=== PATIENT | male | born 2000 | race Two or more races ===

== ENCOUNTER 2024-09-12 08:33 | Emergency (ER) | payer OTHER, SELFPAY ==
[2024-09-12 08:43] VITALS: BP 132/87; PULSE 69; RESP 16; TEMP 36.7; O2SAT 98
[2024-09-12 08:44] VITALS: BMI 23.7
--- NOTE | 2024-09-12 08:45 | XR_ITS ---
Examination: Fingers, right hand third digit 3 views Technique: AP, oblique, lateral views right hand third digit 3 views. Exam date and time: September 12, 2024 0858 hours INDICATIONS: Laceration and injury to the third digit today, pain FINDINGS: Comminuted fractures ungual tuft tip distal phalanx third digit with displacement of the 2 mm bone fragment on the lateral view dorsally No opaque foreign body IMPRESSION: Severely comminuted fractures distal phalanx third digit
[2024-09-12] MEDS: IBUPROFEN TAB 400 MG TABLET 800 MG PO (08:49)
[2024-09-12] MEDS: DIPHTH,PERTUSS(ACELL),TET VAC 0.5 ML VIAL IMi (08:51)
[2024-09-12] MEDS: LIDOCAINE HCL 1% 20 ML VIAL INFL (08:56)
--- NOTE | 2024-09-12 09:18 | PD.EDWOUND ---
ED Wound/Laceration-RME/HPI General Chief Complaint: Wound/Laceration Stated Complaint: CUT RIGHT MIDDLE FINGER WITH WIRE Time Seen by Provider: 09/12/24 08:41 Arrival date/time: 09/12/24 08:33 24-year-old male presents emergency department complaint of laceration to right middle finger patient ports he accidentally cut himself with a wire while at work today Limitations: no limitations Related Data Previous Rx's ?Medication ?Instructions ?Recorded cephalexin 500 mg tablet 500 mg PO QID 7 days #28 tabs 09/12/24 hydrocodone 5 mg-acetaminophen 325 1 tab PO BID PRN pain #10 tabs 09/12/24 mg tablet ibuprofen 600 mg tablet 600 mg PO Q6H #30 tabs 09/12/24 Allergies Allergy/AdvReac Type Severity Reaction Status Date / Time No Known Allergies Allergy Verified 09/12/24 08:35 Review of Systems Review of Systems Systems Reviewed: All systems reviewed, normal except as documented Constitutional Constitutional: Reports system reviewed and no additional complaints, except as documented, Denies fever(s) and Denies headache(s) Eyes Eyes: Reports system reviewed and no additional complaints, except as documented and Denies blurry vision ENT Ears, Nose, Mouth, and Throat: Reports system reviewed and no additional complaints, except as documented, Denies headache(s), Denies nasal congestion and Denies nasal discharge Cardiovascular Cardiovascular: Reports system reviewed and no additional complaints, except as documented, Denies chest pain and Denies dyspnea Respiratory Respiratory: Reports system reviewed and no additional complaints, except as documented, Denies chest congestion, Denies cough and Denies dyspnea Gastrointestinal Gastrointestinal: Reports system reviewed and no additional complaints, except as documented and Denies abdominal pain Integumentary/Breasts Skin/Breast: Reports system reviewed and no additional complaints, except as documented, Denies rash and Reports wounds (Laceration right middle finger) Neurologic Neurologic: Reports system reviewed and no additional complaints, except as documented, Reports as per HPI and Denies headache(s) Past Medical History Past Medical History NEUROLOGIC: Negative Neurological Disorders CARDIAC: Negative Cardiac Disorders ED Exam General Limitations: Present no limitations General appearance: Present alert and in no apparent distress Head Head exam: Present atraumatic Eye Eye exam: Present normal appearance, PERRL and EOMI ENT ENT exam: Present normal exam, normal oropharynx and mucous membranes moist Neck Neck exam: Present normal inspection, full ROM and trachea midline Chest Chest inspection: Present normal inspection and symmetric chest wall rise Respiratory Respiratory exam: Present normal lung sounds bilaterally Cardiovascular Cardiovascular exam: Present regular rate, normal rhythm and normal heart sounds Abdominal Exam Abdominal exam: Present soft and normal bowel sounds Extremities Exam Extremities exam: Present full ROM, tenderness, normal capillary refill and other (Laceration right middle finger) Back Exam Back exam: Present normal inspection and full ROM Neurological Exam Neurological exam: Present alert, oriented X3 and CN II-XII intact Psychiatric Psychiatric exam: Present normal affect and normal mood Skin Skin exam: Present warm, dry and other (Laceration right middle finger) Course Quality Measures none Orders Category Date Time Status Set Up Suture Tray STAT Care 09/12/24 08:45 Completed Wound Care NOW Care 09/12/24 08:45 Completed XR finger RT min 2V Stat Exams 09/12/24 08:45 Completed Ibuprofen Tab [Motrin Tab] Med 09/12/24 08:45 Discontinued 800 mg PO X1 ONE Lidocaine 1% 20 ml [Xylocaine 1% 20 ML] Med 09/12/24 08:45 Discontinued 20 ml INFL X1 ONE Tet,Diphth,Pertuss(Acell)-Tdap [Boostrix Vacc] Med 09/12/24 08:45 Discontinued 0.5 ml IMI .ONCE ONE cephALEXin [Keflex] Med 09/12/24 09:18 Discontinued 500 mg PO X1 ONE Vital Signs Vital signs: Vital Signs Temperature 98.1 F 09/12/24 08:43 Pulse Rate 69 09/12/24 08:43 Respiratory Rate 16 09/12/24 08:43 Blood Pressure 132/87 H 09/12/24 08:43 Pulse Oximetry (%) 98 09/12/24 08:43 Oxygen Delivery Method Room Air 09/12/24 08:43 O2 saturation 98% room air within normal limits Procedures -ED Laceration Laceration 1: Site: hand Side (If applicable): right Size (cm): 2 Description: irregular Depth: simple, single layer Local Anesthetic: lidocaine 1% Amount of anesthesia used (mL): 8 Pre-repair: irrigated extensively Skin layer closed with: nylon Size (cm): 4-0 Number of sutures: 4 Technique: simple, interrupted Laceration 2: Site: hand Side (If applicable): right Size (cm): 2 Description: linear Depth: simple, single layer Local Anesthetic: lidocaine 1% Amount of anesthesia used (mL): 8 Pre-repair: irrigated extensively Skin layer closed with: nylon Size (cm): 4-0 Number of sutures: 4 Technique: simple, interrupted Wound / Laceration MDM Narrative MDM Narrative:: 24-year-old male presents emergency department complaint of laceration to right middle finger patient ports he accidentally cut himself with a wire while at work today On exam patient is laceration distal aspect of the right middle finger patient has an avulsion of his nail with laceration of the nailbed X-ray of the right finger obtained patient does have fracture Patient can move his finger without difficulty no evidence of tendon or ligamentous injury Wound irrigated copiously laceration repaired patient has laceration through the nailbed as well as on the palmar aspect of the finger Patient has a total of 7 sutures applied bulky dressing applied No active bleeding at time of discharge Patient's tetanus updated patient given first dose of antibiotics Patient struck to follow-up with Workmen's Compensation doctor Patient data External records reviewed:: None Clinical information provided by:: patient Social determinants that could affect healthcare access:: none Patient has the following chronic illnesses:: None How is presenting disease/condition affected by chronic disease/condition?: no chronic disease Evaluation data The following diagnostics were reviewed and interpreted by me:: radiology exam(s) Lab and/or radiology exams considered but not ordered:: Radiology obtained Interpretation Summary: Reviewed by me Medications / Prescriptions Medications or Prescriptions considered but not ordered:: Given Medication administrations:: Medication Administration History Discontinued Medications Cephalexin HCl (Cephalexin 250 Mg Capsule) 500 mg PO X1 ONE Stop: 09/12/24 09:19 Last Admin: 09/12/24 09:44 Dose: 500 mg Documented By: AM Diphtheria/Tetanus/Acell Pertussis (Diphth,Pertuss(Acell),Tet Vac 0.5 Ml Vial) 0.5 ml IMi .ONCE ONE Stop: 09/12/24 08:46 Last Admin: 09/12/24 08:51 Dose: 0.5 ml Documented By: ED Ibuprofen (Ibuprofen Tab 400 Mg Tablet) 800 mg PO X1 ONE Stop: 09/12/24 08:46 Last Admin: 09/12/24 08:49 Dose: 800 mg Documented By: ED Lidocaine HCl (Lidocaine Hcl 1% 20 Ml Vial) 20 ml INFL X1 ONE Stop: 09/12/24 08:46 Last Admin: 09/12/24 08:56 Dose: 20 ml Documented By: ED Comments: Used by Rocky REYNAGA for lac repair. Given Consultations Consultation(s) initiated? (list below): No Diagnosis Wound Differential Diagnosis: laceration Most likely diagnosis given after review of the tests above:: Laceration, fracture Admission Indicated Admission indicated?: not indicated Admission Request Was there a request for admission?: No Disposition Plan Disposition Plan: Discharge Discharge Attestation Discharge Attestation: The patient and all family members were given an opportunity to ask questions and understood the discharge instructions. Discharge instructions specifically effects, indications for sooner follow up or return to the emergency department, and the expected course of current diagnosis. Patient condition: Stable Discharge Plan Plan Patient Disposition: HOME (Self Care) Disposition Comment: Stable Prescriptions/Referrals Prescriptions/Med Rec: New hydrocodone-acetaminophen 5-325 mg tablet 1 tab PO BID MDD 10 PRN (Reason: pain) Qty: 10 0RF cephalexin 500 mg tablet 500 mg PO QID 7 Days Qty: 28 0RF ibuprofen 600 mg tablet 600 mg PO Q6H Qty: 30 0RF Problem List Clinical Impression: Laceration of finger of right hand, Fracture of phalanx of finger of right hand Patient/Caregiver Discharge Instructions Education Materials: [facility] [employer] [facility] Additional Instructions: Please follow up with your Workmen's Compensation doctor in the next 24-48hrs for any worsening symptoms return here immediately Print Language: [place] Citizen Stand Alone Forms: Lupe Award Info., Patient Portal Info Letter PHILL/CHRISTINE Supervising Physician PHILL/CHRISTINE Supervising Physician: Dr Pino
[2024-09-12] MEDS: cephALEXin 250 MG CAPSULE 500 MG PO (09:44)
[2024-09-12 10:41] VITALS: BP 120/84; PULSE 63; RESP 16; TEMP 36.5; O2SAT 98
== END 2024-09-12 10:44 | disposition home or self-care (01) ==
PROVIDERS: Emergency Provider Emergency Medicine
DX: S61.312A Laceration without foreign body of right middle finger with damage to nail, initial encounter (principal); S62.632A Displaced fracture of distal phalanx of right middle finger, initial encounter for closed fracture; W45.8XXA Other foreign body or object entering through skin, initial encounter; Y99.0 Civilian activity done for income or pay; Z23 Encounter for immunization
CPT/HCPCS: 12002; 73140; 90471; 90715; 99283; J3490; A9270